=== PATIENT | female | born 1995 | race African-American/Black ===

== ENCOUNTER 2018-07-07 09:07 | Emergency (ER) | payer OTHER ==
[~2018-07-07] VITALS: Ht 170.2 cm; Wt 75.1 kg
[2018-07-07 09:11] VITALS: BP 130/80
[2018-07-07] MEDS ORDERED: CEFDINIR 300 MG CAPSULE PO ONE (09:43)
[2018-07-07] MEDS ORDERED: PHENAZOPYRIDINE 200 MG TABLET PO ONE (10:00)
[2018-07-07] MEDS ORDERED: PHENAZOPYRIDINE 200 MG TABLET ONE (10:01)
[2018-07-07] MEDS ORDERED: CEFDINIR 300 MG CAPSULE ONE (10:02)
[2018-07-07 10:25] LABS: CULTURE INDICATED? YES; MICROSCOPIC INDICATED
== END 2018-07-07 11:21 | disposition home or self-care (01) ==
LOC: ED 10:45
DX: N30.00 Acute cystitis without hematuria (principal)
CPT/HCPCS: 81001; 87077; 87086; 87186; 99284